=== PATIENT | female | born 1965 | race Caucasian/White ===

== ENCOUNTER → 2016-09-06 | Outpatient (CLI) | payer OTHER ==
--- NOTE | 2016-09-06 09:38 | DIAGNOSTIC IMAGING REPORT ---
RIGHT ANKLE MIN 3 VIEWS ROUTINE CLINICAL HISTORY: Right ankle pain and swelling. Positive MIR. COMPARISON: None FINDINGS: Alignment of the right ankle is anatomic. Talar dome is intact. There is no fracture or suspicious lesion. There is mild irregularity of the medial and lateral malleoli. There is minimal osteophytosis of the tibiotalar joint. No erosions are identified. There are no soft tissue calcifications. IMPRESSION: 1. Minimal osteoarthritis of the tibiotalar joint. No erosions. No soft tissue calcifications. 2. Slight irregularity of the medial and lateral malleoli which could reflect old injury or mild degenerative change. 3. No acute fracture. Electronically signed by: Keegan Porras M.D. 09/06/2016 9:37 AM Dictated Date/Time: 09/06/2016 9:35 AM
[2016-09-08 20:18] LABS: ANTI-CENTROMERE AB <1.0 NEG AI (<1.0 NEG); ANTI-SS-A <1.0 NEG AI (<1.0 NEG); ANTI-SS-B <1.0 NEG AI (<1.0 NEG); DNA ds CRITHIDIA NEGATIVE (NEGATIVE); Sm Antibody <1.0 NEG AI (<1.0 NEG)
== END | disposition home or self-care (01) ==
LOC: C.RAD1850 09:01
PROVIDERS: ATTEND Internal Medicine Rheumatology
DX: M25.471 Effusion, right ankle (principal); M25.561 Pain in right knee; R76.8 Other specified abnormal immunological findings in serum; E83.52 Hypercalcemia

== ENCOUNTER → 2016-12-02 | Outpatient (CLI) | payer OTHER ==
[2016-12-02 11:17] LABS: CALCIUM 9.2 mg/dl (8.5-10.1)
[2016-12-02 11:26] LABS: RHEUMATOID FACTOR 10.4 U/mL (0-15)
[2016-12-03 18:28] LABS: ALBUMIN 4.1 G/DL (3.8-4.8); GAMMA GLOBULIN 0.7 G/DL (0.8-1.7); TOTAL PROTEIN 6.6 G/DL (6.2-8.3)
== END | disposition home or self-care (01) ==
LOC: C.LAB1850 09:38
PROVIDERS: ATTEND Internal Medicine Rheumatology
DX: E83.52 Hypercalcemia (principal); E55.9 Vitamin D deficiency, unspecified; M25.50 Pain in unspecified joint